=== PATIENT | male | born 1995 | race Caucasian/White ===

== ENCOUNTER 2025-04-24 18:45 | Emergency (ER) | payer BC, SELFPAY ==
[2025-04-24 18:55] VITALS: BP 130/86
--- NOTE | 2025-04-24 20:10 | ED.GENMED ---
History of Present Illness
General
Chief Complaint: Musculo-Skeletal Complaint
Source: patient
Time Seen by Provider: 04/24/25 19:49
History of Present Illness
History of Present Illness:
Note:
CHIEF COMPLAINT(S)
Injured ankle with suspected Achilles tendon rupture.
HISTORY OF PRESENT ILLNESS
The patient is a 30-year-old male who presented with an ankle injury sustained while of the game playing in a lacrosse game. He reports having �blown out� his ankle during the first shift, resulting in significant discomfort. Patient notes
deformity/absence of the Achilles tendon when he felt behind the ankle. Patient notes inability to plantarflex. No other injuries were sustained. The patient has a history of bilateral anterior cruciate ligament injuries for which she has seen
[facility] in the past.
Past History
Past History
ED Past Medical History: None
ED Past Surgical History: Orthopedic
Social History
Tobacco: Non-smoker
Alcohol: Occasional
Drug: None
Personal: Single
Living: with family
Employment: Employed
Review of Systems
Review of Systems
All Other Systems: ROS reviewed and negative except as documented in HPI and ROS
Phy Exam
Physical Exam
Physical Exam:
GENERAL: Alert , in no apparent distress
EYE: conjunctiva clear
Head: Normocephalic atraumatic
NECK: Supple,
ENT: mmm.
LUNGS: no acute respiratory distress
NEUROLOGICAL: Alert and oriented
SKIN: Warm and dry, skin intact.
MUSCULOSKELETAL: Deformity of the Achilles tendon when inability to plantarflex. Her lower extremity is otherwise warm well-perfused and neurovascularly intact. Cap refill less than 2 seconds. No proximal tib-fib tenderness
PSYCH: Normal and appropriate interaction.
Scores
Heart Failure Risk
Heart Failure Risk Score: Not Applicable
Heart Score for Chest Pain Patients
STEMI patient?: Not applicable
Withdrawal Assessment of Alcohol
Withdrawal Assessment Completed?: Not applicable
Course
Orders/Labs/Results
Orders:
Orders
04/24/25 20:15
Crutches-Treatment ONCE
Ortho Boot Right- Treatment ONCE
Short or tall?: Tall
Vital Signs
Initial and Last Documented VS:
Initial Vital Signs
Temp Pulse Resp BP Pulse Ox
98.8 F 82 15 130/86 98
04/24/25 18:55 04/24/25 18:55 04/24/25 18:55 04/24/25 18:55 04/24/25 18:55
Last Documented Vital Signs
Temp Pulse Resp BP Pulse Ox
98.8 F 82 15 130/86 98
04/24/25 18:55 04/24/25 18:55 04/24/25 18:55 04/24/25 18:55 04/24/25 18:55
MDM/Problems Addressed
Differential Diagnosis Includes:
The Differential Diagnosis includes, in no particular order and is not limited to:
1. Achilles tendon rupture
2. Ankle sprain
3. Ankle fracture
4. Tendonitis
5. Partial tendon tear
6. Chronic ankle instability
MDM/Problems Addressed:
- Provide patient with an orthopedic boot and crutches.
- Advise on weight-bearing precautions
- Recommend applying ice, keeping the leg elevated, and using ibuprofen or similar pain relief as needed.
- Advise follow-up with orthopedics for further evaluation and management, provide contact details for [facility] for appointment scheduling.
*Pulse Oximetry
Patient hypoxic: no
Comment: 98
*Critical Care Note
Total Time (30-74mins, 75-104mins- exclusive of procedures): Not Applicable
ED Attending Note
-
Portions of this chart may have been created with voice recognition software.� Occasional wrong word or��sound alike� substitutions may have occurred due to the inherent limitations of voice recognition software.
Discharge Plan
Departure
Patient Disposition: Home (Routine Discharge)
Date of Disposition: 04/24/25
Time of Disposition: 20:11
Patient with high blood pressure during this ER visit?: No
Discharge Problem:
Rupture of right Achilles tendon
Instructions: Achilles Tendon Rupture (DC)
Referrals:
Michael Palmer MD [Active, Orthopedics]
Stand Alone Forms: Return to Work
Interventions
Interventions:
*Risk Screen - Suicide Last Done: 04/24/25 18:55
*General Assessment Last Done: 04/24/25 18:55
*Neglect/Abuse Screening Last Done: 04/24/25 18:55
*ED- Fall Risk Assessment Last Done: 04/24/25 19:48
*ED COVID-19 Vaccine History Last Done: 04/24/25 19:48
*Nursing Disposition Last Done: 04/24/25 20:49
ED-Musculoskeletal Assessment Last Done: 04/24/25 20:10
Discharge Date and Time
Discharge Date/Time: 04/24/25 20:50
Print Language: CITIZEN [place]
== END 2025-04-24 20:50 | disposition home or self-care (01) ==
LOC: EMR 18:45
PROVIDERS: EMERGENCY PHYSICIAN Emergency Medicine; FAMILY PHYSICIAN Internal Medicine
DX: S86.011A Strain of right Achilles tendon, initial encounter (principal); X50.1XXA Overexertion from prolonged static or awkward postures, initial encounter
CPT/HCPCS: 99282